=== PATIENT | male | born 1950 | race Hispanic/Latino ===

== ENCOUNTER 2016-11-03 08:52 | Outpatient (CLI) | payer OTHER ==
[2016-11-03 11:10] LABS: ALT (SGPT) 23 U/L (0-55); AST (SGOT) 19 U/L (5-34); Alkaline Phosphatase 68 U/L (40-150); Amylase 73 U/L (25-125); Anion Gap 18 mmol/L (10-20); BUN (Urea Nitrogen) 37 mg/dL (8.4-25.7); Bilirubin, Total 0.7 mg/dL (0.2-1.2); Calc. Creatinine Clearance 0 mL/min (70-130); Calcium 10.1 mg/dL (7.8-10.44); Carbon Dioxide 25 mmol/L (23-31); Chloride 93 mmol/L (98-107); Estimated GFR-MDRD 57; Globulin 4.4 g/dL (2.4-3.5); Lipase 57 U/L (8-78); Protein, Total 8.5 g/dL (5.8-8.1)
[2016-11-03 11:57] LABS: #Basophils 0.1 thou/uL (0.0-0.2); #Eosinphils 0.1 thou/uL (0.0-0.7); #Lymphocytes 1.5 thou/uL (1.20-3.40); #Monocytes 0.6 thou/uL (0.11-0.59); #Neutrophils 6.6 thou/uL (1.40-6.50); %Basophils 0.6 % (0.0-1.0); %Eosinophils 1.3 % (0.0-10.0); %Monocytes 6.2 % (0.0-10.0); Hematocrit 43.4 % (42.0-52.0); Mean Platelet Volume 8.4 fL (7.4-10.4); Red Blood Cell (RBC) Count 4.86 mill/uL (4.70-6.10); White Blood Cell (WBC) Count 8.8 thou/uL (4.8-10.8)
[2016-11-03 12:01] LABS: Bilirubin Negative (Negative); Blood, Urine Negative (Negative); Glucose, Urine (Dipstick) 500 mg/dL (Negative); Ketone, Urine Negative (Negative); Nitrite Negative (Negative); Protein, Urine (Dipstick) 100 mg/dL (Neg-Trace); Urobilinogen 0.2 mg/dL (0.2-1.0)
[2016-11-03 12:19] LABS: Bacteria/HPF 1+ HPF (None Seen); RBC/HPF None Seen HPF (0-3); Squamous Epithelial 0-3 HPF (0-3); WBC/HPF 0-3 HPF (0-3)
== END 2016-11-03 08:53 | disposition home or self-care (01) ==
LOC: HPCALD 08:52
PROVIDERS: ATTEND Family Medicine
DX: N13.5 Crossing vessel and stricture of ureter without hydronephrosis (principal)
CPT/HCPCS: 36415; 80053; 81001; 82150; 83690; 85025

== ENCOUNTER 2016-12-28 21:03 | Emergency (ER) | payer OTHER ==
[~2016-12-28 21:03] MED LIST: Lorazepam 2 MG/ML VIAL ONE; Midazolam HCl 5 mg/5 ml Vial ONE; Rocuronium Bromide 50 MG/5 ML VIAL ONE
[2016-12-28 21:48] LABS: Prothrombin Time 18.8 SEC (12.0-14.7)
[2016-12-28 21:55] LABS: Troponin I 1.722 ng/mL (< 0.028)
[2016-12-28 21:58] LABS: Hematocrit 39.6 % (42.0-52.0); Mean Platelet Volume 7.4 fL (7.4-10.4); Red Blood Cell (RBC) Count 4.45 mill/uL (4.70-6.10); White Blood Cell (WBC) Count 12.2 thou/uL (4.8-10.8)
[2016-12-28 22:06] LABS: ALT (SGPT) 111 U/L (0-55); AST (SGOT) 118 U/L (5-34); Alkaline Phosphatase 69 U/L (40-150); Anion Gap 26 mmol/L (10-20); BUN (Urea Nitrogen) 46 mg/dL (8.4-25.7); Bilirubin, Total 1.4 mg/dL (0.2-1.2); Calc. Creatinine Clearance 0 mL/min (70-130); Calcium 9.4 mg/dL (7.8-10.44); Carbon Dioxide 16 mmol/L (23-31); Chloride 92 mmol/L (98-107); Estimated GFR-MDRD 30; Globulin 4.5 g/dL (2.4-3.5); Protein, Total 8.3 g/dL (5.8-8.1)
[2016-12-28 22:08] LABS: Anisocytosis SLIGHT = 6-15 cells (100X) (0-5/hpf); Band 16 % (5-11); Neutrophil 77 % (42-75)
--- NOTE | 2016-12-28 22:23 | RAD ---
FRONTAL RADIOGRAPH CHEST: Date: 12-28-16 History: Altered mental status. Intubated patient. FINDINGS: There is an endotracheal tube projecting over the tracheal air column in proper position. Spine hesham ging limits assessment for pneumothorax and pleural fluid. There is perihilar and bibasilar interst itial prominence, improved when compared to the prior exam. No alveolar edema or lobar consolidatio n. IMPRESSION: Interstitial prominence. Endotracheal tube in place. POS: [facility]
--- NOTE | 2016-12-28 22:28 | CT ---
HEAD CT WITHOUT CONTRAST: Date: 12-28-16 Comparison: None. History: Altered mental status. Technique: Serial axial CT imaging at 5 mm intervals from skull base through vertex without contras t. FINDINGS: There is mild mucosal thickening involving bilateral ethmoid air cells. Imaged paranasal sinuses/ma stoid air cells are otherwise unremarkable. There is no displaced calvarial fracture. There are linear areas of increased density within the posterior lateral right frontal region, the a nterior right frontal region, the anterolateral left frontal region, and the left parietal region. These areas of linear increased density are most consistent with extraaxial blood, primarily subarac hnoid in nature. No midline shift, mass effect, or ventricular enlargement. IMPRESSION: Findings suggesting scattered areas of subarachnoid hemorrhage. Follow up imaging advised to ensure resolution. Dr. Lopez made aware via phone by Dr. Hua at 9:58 p.m. 12-28-16. Code CR. POS: [facility]
== END 2016-12-28 22:05 | disposition short-term general hospital (02) ==
LOC: BURERS 21:03
DX: I60.9 Nontraumatic subarachnoid hemorrhage, unspecified (principal); J96.00 Acute respiratory failure, unspecified whether with hypoxia or hypercapnia; I48.91 Unspecified atrial fibrillation; E11.9 Type 2 diabetes mellitus without complications; I10 Essential (primary) hypertension; E78.5 Hyperlipidemia, unspecified; F32.9 Major depressive disorder, single episode, unspecified; Z79.82 Long term (current) use of aspirin
CPT/HCPCS: 31500; 36415; 70450; 71010; 80053; 82553; 84484; 85025; 85379; 85610; 96374; 96375; A4216; J2060; J2250; J3490